=== PATIENT | female | born 1960 | race Caucasian/White ===

== ENCOUNTER 2018-04-19 09:59 | Emergency (ER) | payer OTHER, BC ==
[~2018-04-19] VITALS: Ht 165.1 cm; Wt 65.8 kg
[2018-04-19] MEDS ORDERED: METH-313 PO (10:54)
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
[2018-04-19] MEDS ORDERED: ACETAMINOPHEN 500 MG TAB (TYLENOL) PO ONE (11:00)
[2018-04-19] MEDS ORDERED: METHOCARBAMOL 750 MG (ROBAXIN) TAB PO ONE (11:00)
[2018-04-19] MEDS ORDERED: CLON0.5T13 (11:15)
[2018-04-19] MEDS ORDERED: CELEXA (11:15)
[2018-04-19] MEDS ORDERED: WELLBUTRIN (11:15)
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
[2018-04-19 12:07] VITALS: BP 118/77
== END 2018-04-19 12:07 | disposition home or self-care (01) ==
LOC: ER 10:00
DX: S16.1XXA Strain of muscle, fascia and tendon at neck level, initial encounter (principal); V43.52XA Car driver injured in collision with other type car in traffic accident, initial encounter
CPT/HCPCS: 70450; 72125

== ENCOUNTER 2018-10-16 08:07 | Emergency (ER) | payer BC ==
[~2018-10-16] VITALS: Ht 152.4 cm; Wt 59.9 kg
[~2018-10-16 08:07] MED LIST: CELEXA; CLON0.5T13; METH-313 PO; WELLBUTRIN
--- NOTE | 2018-10-16 08:14 | NUR ---
Gabby RN placed nose clamp on patients nose. patient verbalizes nose bleed started as a result of blowing her nose gently this am at 0715 and has continued.
[2018-10-16] MEDS ORDERED: OXYMETAZOLINE (AFRIN) 0.05% NA 15 ML BTL STA (08:20)
[2018-10-16] MEDS ORDERED: VERA180T11 (08:25)
[2018-10-16] MEDS ORDERED: TRAZ-222 (08:25)
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
--- NOTE | 2018-10-16 09:00 | NUR ---
patient taken blanket and a cup of ice. verbalizes she is feeling better and no longer can feel the blood running down the back of her throat. will continue to monitor.
--- NOTE | 2018-10-16 09:45 | NUR ---
in room to check patient, needs denied at this time. will continue to monitor
[2018-10-16 10:00] VITALS: BP 112/70
== END 2018-10-16 10:00 | disposition home or self-care (01) ==
LOC: EDUNIT# 08:07 → ER 08:08
DX: R04.0 Epistaxis (principal); I10 Essential (primary) hypertension; F41.9 Anxiety disorder, unspecified; F32.9 Major depressive disorder, single episode, unspecified; Z98.84 Bariatric surgery status

== ENCOUNTER 2018-12-02 13:10 | Outpatient (CLI) | payer BC ==
[~2018-12-02 13:10] MED LIST changes: +TRAZ-222; +VERA180T11
== END 2018-12-02 13:37 | disposition home or self-care (01) ==
LOC: SLEEP 13:10
PROVIDERS: ATTEND Nurse Practitioner
DX: G47.33 Obstructive sleep apnea (adult) (pediatric) (principal)

== ENCOUNTER → 2019-08-21 | Outpatient (CLI) | payer BC ==
[~2019-08-21] MED LIST changes: -CLON0.5T13; +CLON0.5T4; -TRAZ-222; +TRZ50T
--- NOTE | 2019-08-21 16:00 | Diagnostic Imaging Report ---
INDICATION: Chest heaviness and weakness as well as shortness of air. TIME OF EXAM: 3:43 PM. COMPARISON: No prior studies are available for comparison. FINDINGS: The heart size is normal. 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 The lungs are clear. No infiltrates are seen. There is no effusion or pneumothorax. IMPRESSION: No acute cardiopulmonary process is detected. Report given to LÁZARO Pickard at 03:59 p.m. 08/21/2019/ab Dictated by: Dictated on workstation # [id number]
== END ==
LOC: RAD 15:27
PROVIDERS: ATTEND Physician Assistant
DX: J02.9 Acute pharyngitis, unspecified (principal); R09.81 Nasal congestion; R53.1 Weakness; R06.02 Shortness of breath
CPT/HCPCS: 71046

== ENCOUNTER → 2019-08-22 | Outpatient (CLI) | payer BC | LOC: LABNPT 13:39 | PROVIDERS: ATTEND Internal Medicine | DX: J02.9 Acute pharyngitis, unspecified (principal); R09.81 Nasal congestion; R53.1 Weakness; R06.02 Shortness of breath | CPT/HCPCS: 87430; 87635; 87804 ==

== ENCOUNTER 2019-10-23 05:49 | Outpatient (RCR) | payer BC ==
[~2019-10-23] VITALS: Ht 152.4 cm; Wt 64.1 kg
[~2019-10-23 05:49] MED LIST changes: +BUPR300T43 PO; +CALC-654 PO; +CITA40TA19 PO; -CLON0.5T4; +CLON0.5T4 PO; +FEXO180T84 PO; +LOSA100T57 PO; +MV-M1TAB57 PO; +TRAZ-227 PO; -VERA180T11; +VERA180T11 PO
== END 2019-10-23 15:07 | disposition home or self-care (01) ==
LOC: PREOP 05:49
PROVIDERS: ATTEND Internal Medicine
DX: Z01.818 Encounter for other preprocedural examination (principal); Z11.59 Encounter for screening for other viral diseases
CPT/HCPCS: 87635